=== PATIENT | female | born 1990 | race Caucasian/White ===

== ENCOUNTER 2024-08-25 07:43 | Emergency (ER) | payer MEDICAID, SELFPAY ==
[2024-08-25 07:44] VITALS: BMI 49.8
[2024-08-25 07:48] VITALS: BP 168/94; PULSE 90; RESP 16; TEMP 36.7; O2SAT 98; BMI 49.8
--- NOTE | 2024-08-25 07:50 | PD.EDDENTL ---
ED Dental RME/HPI General Chief complaint: Dental/Oral/Throat Stated complaint: BROKEN TOOTH AND PAIN SINCE LAST WEEK Time Seen by Provider: 08/25/24 07:47 Arrival date/time: 08/25/24 07:43 34-year-old female presents emergency department complaints of left lower dental pain patient reports dental fracture patient reports no fever nausea or vomiting Limitations: no limitations Related Data Previous Rx's ?Medication ?Instructions ?Recorded mupirocin 2 % topical ointment 1 applic topical BID #15 grams 03/23/22 nirmatrelvir 300 mg (150 mg See Rx Instructions PO .COMPLEX 09/29/23 x2)-ritonavir 100 mg tablet,dose #30 tabs pack (Paxlovid) amoxicillin 875 mg-potassium 1 tab PO BID 7 days #14 tabs 08/25/24 clavulanate 125 mg tablet ibuprofen 800 mg tablet 800 mg PO TID PRN pain #30 tabs 08/25/24 tramadol 50 mg tablet 50 mg PO BID PRN pain #6 tabs 08/25/24 Allergies Allergy/AdvReac Type Severity Reaction Status Date / Time tetracycline Allergy Mild Hives Verified 08/25/24 07:46 Review of Systems Review of Systems Systems Reviewed: All systems reviewed, normal except as documented Constitutional Constitutional: Reports system reviewed and no additional complaints, except as documented, Denies fever(s) and Denies headache(s) Eyes Eyes: Reports system reviewed and no additional complaints, except as documented and Denies blurry vision ENT Ears, Nose, Mouth, and Throat: Reports system reviewed and no additional complaints, except as documented, Reports dental pain, Reports facial pain, Denies headache(s), Denies nasal congestion and Denies nasal discharge Cardiovascular Cardiovascular: Reports system reviewed and no additional complaints, except as documented, Denies chest pain and Denies dyspnea Respiratory Respiratory: Reports system reviewed and no additional complaints, except as documented, Denies chest congestion, Denies cough and Denies dyspnea Gastrointestinal Gastrointestinal: Reports system reviewed and no additional complaints, except as documented and Denies abdominal pain Integumentary/Breasts Skin/Breast: Reports system reviewed and no additional complaints, except as documented and Denies rash Neurologic Neurologic: Reports system reviewed and no additional complaints, except as documented, Reports as per HPI and Denies headache(s) Past Medical History Past Medical History NEUROLOGIC: Negative Neurological Disorders or Seizures CARDIAC: Positive Hypertension; Negative Cardiac Disorders, Congestive Heart Failure or Edema RESPIRATORY: Positive Asthma (INHALER USE 4 DAYS AGO); Negative Chronic Obstructive Pulmonary Disease (COPD), Tuberculosis or Sleep Apnea GASTROINTESTINAL: Positive Gastrointestinal Disorders and Hiatal Hernia; Negative Hepatitis or Colorectal Cancer GENITOURINARY: Negative Genitourinary Disorders or Renal Disease REPRODUCTIVE: Positive Previous Pregnancies; Negative Breast Cancer, Endometriosis, Genital Herpes, Gonorrhea, Pelvic Inflammatory Disease, Syphilis or Uterine Prolapse MUSCULOSKELETAL: Negative Musculoskeletal Disorders or Bone Cancer ENDOCRINE: Negative Endocrine Disorders, Diabetes Mellitus Type 1 or Diabetes Mellitus Type 2 HEMATOLOGIC: Positive Blood Disorders and Anemia; Negative Leukemia or Sickle Cell Disease PSYCHO/SOCIAL: Positive Depression OTHER HISTORY: Positive Hospitalization and Blood Transfusions; Negative Autoimmune Disease, Down Syndrome, Developmental Delay, Shingles, Falls, Blood Transfusion Reaction, Anesthesia Reactions, Organ Transplant, Chemotherapy, Hyperbaric Therapy, MRSA, VRSA, Vancomycin-Resistant Enterococci, Human Immunodeficiency Virus (HIV), Chicken Pox, Measles, Mumps, Rubella (Urdu Measles), Pertussis, Clostridium Difficile, Cancer, Breast Cancer, Cervical Cancer, Colorectal Cancer, Lung Cancer or Ovarian Cancer Family History FAMILY HISTORY: Positive Family Respiratory Disorders (Mother- COPD), Family Cardiac Disorders (MOTHER- HTN- 1 HEART ATTACK- 3 STENTS) and Family Cancer (FATHER- LUNG CANCER); Negative Family Psychiatric Problems, Family Gastrointestinal Problems, Family Surgery or Family Anesthesia Reaction Surgical History SURGICAL: Positive Abdominal Surgery and Section; Negative Cardiac Surgery, Pacemaker, Endocrine Surgery, Eye Surgery, Nephrectomy, Joint Replacement, Neurologic Surgery, Brain Shunt, Tubal Ligation or Organ Transplant Social History SMOKING STATUS: Current every day smoker SECOND HAND EXPOSURE: Yes ED Exam General Limitations: Present no limitations General appearance: Present alert and in no apparent distress Head Head exam: Present atraumatic Eye Eye exam: Present normal appearance, PERRL and EOMI ENT ENT exam: Present mucous membranes moist Expanded ENT Exam Teeth exam: Present dental caries, fractured tooth #, dental tenderness # and gingival swelling Neck Neck exam: Present normal inspection, full ROM and trachea midline Chest Chest inspection: Present normal inspection and symmetric chest wall rise Respiratory Respiratory exam: Present normal lung sounds bilaterally Cardiovascular Cardiovascular exam: Present regular rate, normal rhythm and normal heart sounds Abdominal Exam Abdominal exam: Present soft and normal bowel sounds Extremities Exam Extremities exam: Present normal inspection and full ROM Back Exam Back exam: Present normal inspection and full ROM Neurological Exam Neurological exam: Present alert, oriented X3 and CN II-XII intact Psychiatric Psychiatric exam: Present normal affect and normal mood Skin Skin exam: Present warm, dry, intact and normal color Course Quality Measures none Orders Category Date Time Status Amoxicillin/Pot Clav 875 [Augmentin 875] Med 08/25/24 07:47 Discontinued 1 tab PO X1 ONE Ibuprofen Tab [Motrin Tab] Med 08/25/24 07:47 Discontinued 800 mg PO X1 ONE Vital Signs Vital signs: Vital Signs Temperature 98.1 F 08/25/24 07:48 Pulse Rate 90 08/25/24 07:48 Respiratory Rate 16 08/25/24 07:48 Blood Pressure 168/94 H 08/25/24 07:48 Pulse Oximetry (%) 98 08/25/24 07:48 Oxygen Delivery Method Room Air 08/25/24 07:48 O2 saturation 98% room air within normal limits Dental / Oral MDM Narrative MDM Narrative:: 34-year-old female presents emergency department complaints of left lower dental pain patient reports dental fracture patient reports no fever nausea or vomiting On exam patient does not appear ill or toxic in no acute distress Patient given first dose of antibiotics and pain medication here Patient struck to follow-up with dentist soon as possible Patient discharged home in no distress to follow-up with primary care doctor in the next 24 to 48 hours and for any worsening symptoms to return to the ER immediately Patient data External records reviewed:: [facility] previous records Clinical information provided by:: patient Social determinants that could affect healthcare access:: none Patient has the following chronic illnesses:: None How is presenting disease/condition affected by chronic disease/condition?: no chronic disease Evaluation data The following diagnostics were reviewed and interpreted by me:: other (specify) (N/A) Lab and/or radiology exams considered but not ordered:: Consider not ordered Interpretation Summary: N/A Medications / Prescriptions Medications or Prescriptions considered but not ordered:: Given Medication administrations:: Medication Administration History Discontinued Medications Amoxicillin/Clavulanate Potassium (Amoxicillin/Pot Clav 875 Tablet) 1 tab PO X1 ONE Stop: 08/25/24 07:48 Last Admin: 08/25/24 07:56 Dose: 1 tab Documented By: MAURO Ibuprofen (Ibuprofen Tab 400 Mg Tablet) 800 mg PO X1 ONE Stop: 08/25/24 07:48 Last Admin: 08/25/24 07:56 Dose: 800 mg Documented By: TM Given Consultations Consultation(s) initiated? (list below): No Diagnosis Dental Differential Diagnosis: gingival abscess, dental caries, toothache and dental abscess Most likely diagnosis given after review of the tests above:: Dental pain Admission Indicated Admission indicated?: not indicated Admission Request Was there a request for admission?: No Disposition Plan Disposition Plan: Discharge Discharge Attestation Discharge Attestation: The patient and all family members were given an opportunity to ask questions and understood the discharge instructions. Discharge instructions specifically effects, indications for sooner follow up or return to the emergency department, and the expected course of current diagnosis. Patient condition: Stable Discharge Plan Plan Patient Disposition: HOME (Self Care) Disposition Comment: Stable Prescriptions/Referrals Prescriptions/Med Rec: New ibuprofen 800 mg tablet 800 mg PO TID PRN (Reason: pain) Qty: 30 0RF amoxicillin-pot clavulanate 875-125 mg tablet 1 tab PO BID 7 Days Qty: 14 0RF tramadol 50 mg tablet 50 mg PO BID PRN (Reason: pain) Qty: 6 0RF No Action mupirocin 2 % ointment 1 applic topical BID Qty: 15 1RF Paxlovid 300 mg (150 mg x 2)-100 mg tablets,dose pack See Rx Instructions .ROUTE .COMPLEX Qty: 30 0RF Rx Instructions: take TWO 150 mg tablets of nirmatrelvir with ONE 100 mg tablet of ritonavir twice daily for 5 days Problem List Clinical Impression: Pain, dental, Broken tooth-uncomplic Patient/Caregiver Discharge Instructions Education Materials: ED Dental Pain Additional Instructions: Please follow-up with dentist as discussed for worsening symptoms return immediately Print Language: Portuguese Stand Alone Forms: Hayley Award Info., Patient Portal Info Letter PA/DREW Supervising Physician GEORGE/DREW Supervising Physician: Dr Eric
[2024-08-25] MEDS: IBUPROFEN TAB 400 MG TABLET 800 MG PO (07:56)
[2024-08-25] MEDS: AMOXICILLIN/POT CLAV 875 TABLET 1 TAB PO (07:56)
== END 2024-08-25 07:58 | disposition home or self-care (01) ==
LOC: SERX 08:02
PROVIDERS: Emergency Provider Emergency Medicine
DX: S02.5XXA Fracture of tooth (traumatic), initial encounter for closed fracture (principal); W19.XXXA Unspecified fall, initial encounter
CPT/HCPCS: 99282; A9270